=== PATIENT | female | born 1940 | race Caucasian/White ===

== ENCOUNTER 2020-10-03 13:38 | Observation (INO) | payer MEDICARE ==
[~2020-10-03] VITALS: Ht 165.1 cm; Wt 61.0 kg
--- NOTE | 2020-10-03 14:30 | NUR ---
PT CONFUSED AND UNCOOPERATIVE, LOUD AND HYSTERICAL. FLAILING ARMS AND YELLING, DAUGHTER BEDSIDE TRYING TO CALM HER, MEDS ORDERED PER MD AWAITING VERIFICATION
--- NOTE | 2020-10-03 15:45 | NUR ---
PT CALMING DOWN AND WAITING RESULTS
[2020-10-03 15:53] LABS: HEMATOCRIT 44.2 % (37.0-47.0); HEMOGLOBIN 14.4 g/dl (12.0-16.0); IMMATURE GRANULOCYTES 0.9 % (0.0-5.0); MEAN CELL VOLUME 92.7 fL CALC (80.0-100.0); MEAN CORPUSCULAR HGB 30.2 pG CALC (26.0-32.0); MEAN CORPUSCULAR HGB CONC 32.6 g/dL CAL (32.0-36.0); NEUT# 7.17 thou/uL (2.00-7.15); RED BLOOD COUNT 4.77 mill/uL (4.20-5.60); RED CELL DISTRI WIDTH 12.5 % (11.5-15.5)
[2020-10-03 16:13] LABS: ALBUMIN 4.1 g/dL (3.2-5.0); ALKALINE PHOSPHATASE 70 u/l (38-126); ANION GAP 14 (6-22 (CALC)); BUN 12 mg/dL (8-23); BUN/CREATININE RATIO 14 (12-20 (CALC)); CARBON DIOXIDE 26 mmol/l (22-30); CHLORIDE 101 mmol/l (95-108); CREATININE 0.8 mg/dL (0.5-1.0); ETHYL ALCOHOL 0 mg/dl (0-30); GFR > 60 ML/MIN (>=60 (CALC)); GFR FOR AFR.AMER. > 60 ML/MIN (>=60 (CALC)); LIPASE 587 u/l (23-300); POTASSIUM 3.9 mmol/l (3.5-5.1); SGOT/AST 26 u/l (9-36); SODIUM 137 mmol/l (137-146)
[2020-10-03 17:03] LABS: URINE BILIRUBIN - DIPSTICK NEGATIVE (NEGATIVE); URINE BLOOD DIPSTICK NEGATIVE (NEGATIVE); URINE COLOR YELLOW; URINE GLUCOSE - DIPSTICK NEGATIVE (NEGATIVE); URINE KETONE NEGATIVE (NEGATIVE); URINE LEUK ESTERASE TRACE (NEGATIVE); URINE PROTEIN - DIPSTICK NEGATIVE (NEG-TRACE); URINE SPECIFIC GRAVITY 1.025; URINE UROBILINOGEN - DIPSTICK 0.2 E.U./dL (0.2)
[2020-10-03 17:04] LABS: URINE NITRITE - DIPSTICK NEGATIVE (Negative)
--- NOTE | 2020-10-03 20:15 | NUR ---
PT AMBULATORY TO BR. NAD. ASSISTED BY SITTED. GAIT STEADY.
--- NOTE | 2020-10-03 20:37 | NUR ---
DODIE FRYE UPDATED ON PT STATUS.
--- NOTE | 2020-10-03 21:45 | NUR ---
PT WAS GIVEN LOVONOX DOSE. AWAITING ADMISSION. RESTING QUIETLY. NAD. VSS.
--- NOTE | 2020-10-03 21:53 | NUR ---
REPORT TO CB SALCIDO, NURSE/MED-SURG.
[2020-10-03 22:00] VITALS: BP 153/92
--- NOTE | 2020-10-03 22:04 | NUR ---
TO FLOOR VIA STRETCHER. ON BOX MONITOR. CALM. NAD.
--- NOTE | 2020-10-03 22:43 | NUR ---
RECEIVED REPORT NURSE AUGUSTO, PATIENT TRASNPORTED VIA BED, PATIENT DROWSY KEEPS FALLING ASLEEP ON ADMISSION, ALERT ONLY TO NAME AT THIS TIME, PATIENT PUT ON BED ALARM AND BABY MONITOR, PATIENT HOOKED TO NS AT 100CC/HR INFUSING WELL ON LAC G20, STATED BM TODAY 10/03, HOOKED ON TELEMETRY CALL LIGHT AT REACH.
[2020-10-03 23:30] VITALS: BP 150/97
--- NOTE | 2020-10-04 | NUR ---
PATIENT RESTING IN BED EYES CLOSED, BREATHING EVEN UNLABORED, BED ALARM IN PLACE.CALL LIGHT AT REACH
--- NOTE | 2020-10-04 04:05 | NUR ---
PATIENT APPEARS TO BE SLEEPING LEFT SIDE LYING POSITION, BREATHING UNLABORED CALL LIGHT AT REACH.
[2020-10-04 04:37] VITALS: BP 171/96
[2020-10-04 05:12] VITALS: BP 122/76
--- NOTE | 2020-10-04 05:13 | NUR ---
BP RECHECKED AND RECORDED, PATIENT COOPERATIVE AT THIS TIME, PATIENT WENT BACK TO SLEEP AFTER.
[2020-10-04 05:49] LABS: HEMATOCRIT 43.1 % (37.0-47.0); HEMOGLOBIN 14.1 g/dl (12.0-16.0); MEAN CELL VOLUME 95.1 fL CALC (80.0-100.0); MEAN CORPUSCULAR HGB 31.1 pG CALC (26.0-32.0); MEAN CORPUSCULAR HGB CONC 32.7 g/dL CAL (32.0-36.0); RED BLOOD COUNT 4.53 mill/uL (4.20-5.60); RED CELL DISTRI WIDTH 12.7 % (11.5-15.5)
[2020-10-04 06:05] LABS: ANION GAP 9 (6-22 (CALC)); BUN 10 mg/dL (8-23); BUN/CREATININE RATIO 11 (12-20 (CALC)); CARBON DIOXIDE 31 mmol/l (22-30); CHLORIDE 104 mmol/l (95-108); CREATININE 0.9 mg/dL (0.5-1.0); GFR 60 ML/MIN (>=60 (CALC)); GFR FOR AFR.AMER. > 60 ML/MIN (>=60 (CALC)); POTASSIUM 4.4 mmol/l (3.5-5.1); SODIUM 139 mmol/l (137-146)
--- NOTE | 2020-10-04 07:24 | NUR ---
BED ALARM SOUNDING, UPON ENTERING ROOM PT ATTEMPTING TO GET OOB. PT WAS ABLE TO STATE WHERE SHE WAS AT CURRENTLY, PT CALM, NO SIGNS OF AGITATION. ASSISTED PT TO BSC. ASSISTED PT BACK INTO BED. ORIENTED PT TO ROOM. LEFT CALL LIGHT WITHIN REACH, EDUCATED ON HOW TO CALL FOR HELP. BED ALARM PLACED FOR SAFETY. CALL LIGHT WITHIN REACH.
[2020-10-04 07:59] VITALS: BP 156/57
--- NOTE | 2020-10-04 08:00 | NUR ---
PT SLEEP IN BED. VITALS AND ASSESSMENT DONE. S1 AND S2 HEARD. PT LUNG SOUNDS CLEAR. BOWEL SOUNDS ACTIVE IN ALL 4 QUADRANTS. PEDAL PULSES EQUAL BILATERALLY. IV PATENT AND HEALTHY. NO DISTRESS NOTED. CALL LIGHT WITHIN REACH.
[2020-10-04 10:45] VITALS: BP 168/69
[2020-10-04] MEDS ORDERED: XANAX0.25 MG PO (11:00)
[2020-10-04] MEDS ORDERED: HYDRALAZINE HYD25 MG PO (11:00)
[2020-10-04] MEDS ORDERED: FLUOXETINE40 MG PO (11:01)
[2020-10-04] MEDS ORDERED: OMEPRAZOLE DR20 MG (11:02)
[2020-10-04] MEDS ORDERED: TIZANIDINE HYDRO2 M1 PO (11:02)
[2020-10-04] MEDS ORDERED: OMEPRAZOLE DR20 MG PO (11:03)
--- NOTE | 2020-10-04 11:20 | NUR ---
DR. CURRIE AND Aristides BARROSO AT BEDSIDE DISCUSSING POC.
--- NOTE | 2020-10-04 12:00 | NUR ---
PT SLEEP IN BED. NO DISTRESS NOTED. CALL LIGHT WITHIN REACH.
[2020-10-04 15:10] VITALS: BP 134/40
--- NOTE | 2020-10-04 16:00 | NUR ---
PT IN BED. NO DISTRESS NOTED. CALL LIGHT WITHIN REACH.
[2020-10-04 18:51] VITALS: BP 114/53
--- NOTE | 2020-10-04 20:00 | NUR ---
PATIENT RESTING IN BED AT THIS TIME. AWAKE ALERT AND ORIENTED TO PERSON AND PLACE. PATIENT IS ON ISOLATION FOR COVID. RESPS ARE EVEN AND UNLABORED, LUNGS ARE CLEAR. O2 SAT IS 96% ON RA. TELE MONITOR IN PLACE-LAST READING WAS SR-[id number]. MIN ASSIST TO THE BSC TO VOID WITHOUT ANY DIFFICULTY. BACK INTO BED. IVF NS PATENT AND INFUSING VIA LAC SITE AT 100CC/HR. SITE IS HEALTHY AT THIS TIME. NO PERIPHERAL EDEMA NOTED. PULSES ARE PALPABLE. BED ALARM IN PLACE FOR PATIENT SAFETY. SAFETY PRECAUTIONS REINFORCED. CALL LIGHT IN REACH. WILL CONT TO MONITOR.
[2020-10-05] VITALS: BP 128/51
--- NOTE | 2020-10-05 | NUR ---
PATIENT ASSISTED OOB TO BSC TO VOID AND THEN BACK TO BED. PATIENT IS TAKING LARGE AMTS OF PO FLUIDS-APPLE JUICE, WATER. TELE MONITOR REMAINS IN PLACE. IV SITE TO LAC REMAINS PATENT WITH IVF NS AT 100CC/HR. BED ALARM IN PLACE FOR PATIENT SAFETY. CALL LIGHT IN REACH. WILL CONT TO MONITOR.
--- NOTE | 2020-10-05 04:08 | NUR ---
PATIENT HAS SLEPT VERY LITTLE TONIGHT. CONSTANTLY CALLING FOR JUICE AND DRINKS. UP TO BSC MULTIPLE TIMES TO VOID. TELE MONITOR IN PLACE. IVF NS PATENT AND INFUSING AT 100CC/HR. BED ALARM IN PLACE FOR PATIENT SAFETY. SAFETY PRECAUTIONS REINFORCED. CALL LIGHT IN REACH. WILL CONT TO MONITOR.
[2020-10-05 04:25] VITALS: BP 153/52
--- NOTE | 2020-10-05 04:32 | NUR ---
PATIENT RESTING IN BED-MEDICATED FOR HEADACHE/GENERALIZED PAIN WITH TYLENOL 650MG PO FOR PAIN. BED ALARM IN PLACE FOR PATIENT SAFETY. CALL LIGHT IN REACH. WILL CONT TO MONITOR.
[2020-10-05 05:58] LABS: HEMATOCRIT 40.6 % (37.0-47.0); HEMOGLOBIN 12.9 g/dl (12.0-16.0); MEAN CELL VOLUME 97.4 fL CALC (80.0-100.0); MEAN CORPUSCULAR HGB 30.9 pG CALC (26.0-32.0); MEAN CORPUSCULAR HGB CONC 31.8 g/dL CAL (32.0-36.0); RED BLOOD COUNT 4.17 mill/uL (4.20-5.60); RED CELL DISTRI WIDTH 12.9 % (11.5-15.5)
[2020-10-05 06:12] LABS: BUN 15 mg/dL (8-23); BUN/CREATININE RATIO 20 (12-20 (CALC)); CHLORIDE 107 mmol/l (95-108); CREATININE 0.7 mg/dL (0.5-1.0); GFR > 60 ML/MIN (>=60 (CALC)); GFR FOR AFR.AMER. > 60 ML/MIN (>=60 (CALC)); POTASSIUM 4.3 mmol/l (3.5-5.1); SODIUM 135 mmol/l (137-146)
[2020-10-05 06:15] LABS: ANION GAP 9 (6-22 (CALC)); CARBON DIOXIDE 23 mmol/l (22-30)
--- NOTE | 2020-10-05 07:05 | NUR ---
REPORT FROM FAB CRUZ. ASSUMED PT CARE.
[2020-10-05 08:02] VITALS: BP 162/55
--- NOTE | 2020-10-05 09:18 | NUR ---
PT NOTED RESTING IN BED. ALERT AND ORIENTED X3. NO APPARENT DISTRESS NOTED. RESPIRATIONS EVEN AND UNLABORED ON RA. PT DENIES ANY PAIN OR DISCOMFORT. IV SITE APPEARS HEALTHY WITH IVF INFUSING. MILL TURNER IN PLACE. DISCUSSED POC. PT VERBALIZED UNDERSTANDING. CALL LIGHT WITHIN REACH. WILL CONTINUE TO MONITOR.
[2020-10-05 10:28] VITALS: BP 147/61
--- NOTE | 2020-10-05 12:43 | NUR ---
REQUEST FROM PT TO CALL [facility] FOR RIDE HOME. RIDE ARRANGED FOR 5PM. NOTIFIED PT, PT VERABLIZED UNDERSTANDING.
--- NOTE | 2020-10-05 12:54 | NUR ---
PTS RIDE NOW GOING TO BE HERE AT 2PM.
--- NOTE | 2020-10-05 16:00 | NUR ---
IV site discontinued, cath intact. No edema , no redness, voices no discomfort. Discharge instructions given. Patient verbalizes understanding of same. Discharged in stable condition via Wheelchair to Home with family. All belongings sent with pt.
== END 2020-10-05 16:00 | disposition home or self-care (01) ==
LOC: ED 13:38 → ED-I 18:46 → MS2 20:03 → ED 20:03 → MS2 20:03
PROVIDERS: Emergency Medicine; ADMIT Hospitalist; ATTEND Hospitalist
DX: G93.49 Other encephalopathy (principal); U07.1 COVID-19; G47.00 Insomnia, unspecified; I10 Essential (primary) hypertension; F32.9 Major depressive disorder, single episode, unspecified; F43.10 Post-traumatic stress disorder, unspecified; F41.9 Anxiety disorder, unspecified; F17.200 Nicotine dependence, unspecified, uncomplicated; G24.9 Dystonia, unspecified; T42.4X6A Underdosing of benzodiazepines, initial encounter; T43.226A Underdosing of selective serotonin reuptake inhibitors, initial encounter; Z91.128 Patient's intentional underdosing of medication regimen for other reason
CPT/HCPCS: G0378; J1650; J2060; Q9967; S0166